=== PATIENT | male | born 1975 | race Caucasian/White ===

== ENCOUNTER 2016-10-30 11:17 | Inpatient (IN) | payer MEDICARE ==
[~2016-10-30 11:17] MED LIST: ACETAMINOPHEN500 M4 PO; ADULT ASPIRIN81 MG PO; AMLODIPINE BESY10 MG PO; AMOXICILLIN500 MG PO; ANDRODERM TD; APRESOLINE50 MG PO; ASPIRIN325 M3 PO; ASPIRIN325 MG PO; AUGMENTIN 500-1 EAC2 PO; AUGMENTIN 875-11 TAB PO; AUGMENTIN500 MG PO; AUGMENTIN875 MG PO; BABY ASPIRIN81 MG PO; BUMEX2 MG PO; BUTALBITAL-APA1 EAC1 PO; BYSTOLIC10 MG PO; BYSTOLIC20 M1 PO; BYSTOLIC20 MG PO; CALCITRIOL0.25 MCG PO; CALCITRIOL0.5 MCG PO; CALCIUM ACETAT667 M1 PO; CARDURA4 M1 PO; CARDURA4 MG PO; CEFAZOLIN SODIUM1 GM HEMO-CATH; CELLCEPT500 MG PO; CHLORASEPTIC LO1 LOZ MM; CHLORASEPTIC T180 ML MM; CLONAZEPAM1 M1 PO; DIPHENOXYLATE 2.1 EA PO; ENALAPRIL MALEA10 MG PO; EPOGEN10000 U/ML SC; EPOGEN20000 U/ML IJ; EPOGEN20000 U/ML SQ; EPOGEN4000 U/ML SC; EQL FISH OIL 1,1 CA1 PO; EQL FISH OIL 1,1 CAP PO; ERGOCALCIF50000 UNIT PO; FERAHEME510 MG/17 IV; FIORICET 50-301 EAC1 PO; FIORICET TABLET1 TAB PO; FISH OIL 1,0001 CA1 PO; FISH OIL 300 MG PO; GARAMYCIN3.5 GM OP; GENTAMICIN SULF30 GM TP; HEPARIN FL IV; HEPATITIS B VACCINE IM; HYDRALAZINE HC100 M1 PO; HYDRALAZINE HC100 MG PO; HYDRALAZINE HCL50 M1 PO; HYDRALAZINE HCL50 MG PO; IMDUR30 MG PO; IMDUR60 MG PO; ISOSORBIDE MONO60 M1 PO; ISOSORBIDE MONO60 M3 PO; KLONOPIN1 MG PO; LASIX20 MG PO; LEVAQUIN250 MG PO; LEVAQUIN500 MG PO; LEXAPRO10 MG PO; LIDOCAINE TOP; LIDOCAINE TP; LIDOCAINE-PRILO30 GM TP; LOMOTIL 2.5-0.1 EACH PO; LOMOTIL PO; LOMOTIL1 TA1 PO; LONITEN10 MG PO; MINOXIDIL10 M1 PO; MINOXIDIL10 MG PO; MIRALAX17 G2 PO; MIRALAX17 GM PO; MULTIPLE VITAMI1 TAB PO; NEPHROCAPS CAPSU1 MG PO; NEXIUM20 MG PO; NEXIUM40 M1 PO; NEXIUM40 MG PO; NORCO 5/3251 TA2 PO; NORCO 5/3251 TAB PO; NORVASC10 M1 PO; NORVASC10 M2 PO; NORVASC10 MG PO; NORVASC5 M2 PO; OS-CAL 500500 MG/TA1 PO; OXYCODONE HCL10 M2 PO; OXYCODONE/APAP PO; PERCOCET 10 MG/1 TA1 PO; PERCOCET 10-321 EACH PO; PERCOCET 10/31 UDTAB PO; PERCOCET 5-3251 EACH PO; PERCOCET 5/3251 TAB PO; PHOSLO667 M PO; PREDNISONE10 MG PO; PRILOSEC20 MG PO; PROGRAF1 MG PO; QUININE SULFAT324 MG PO; REGLAN5 MG PO; RENAGEL400 MG PO; RENAGEL800 MG PO; RENVELA800 MG PO; ROCALTROL0.5 MC1 PO; SALSALATE500 MG PO; SENSIPAR30 MG PO; SENSIPAR90 MG PO; SERTRALINE HCL100 M1 PO; SERTRALINE HCL100 M2 PO; SERTRALINE HCL100 M5 PO; SINEMET 25-1001 EAC1 PO; SINEMET 25-1001 TA1 PO; SINEMET ER 25/11 TA1 PO; SM PAIN RELIEV PO; SULFAMYLON SOL250 M1 TOP; TOPROL XL100 MG PO; TRICOR145 M1 PO; TRICOR145 M2 PO; TRICOR145 MG PO; TRICOR48 M2 PO; TRICOR48 MG PO; TUBERCULIN MC; TUMS500 M1 PO; VASOTEC10 M1 PO; VASOTEC10 M2 PO; VASOTEC10 MG PO; VASOTEC20 MG PO; VITAMIN D250000 UNI1 PO; ZOCOR40 MG PO; ZOFRAN4 M1 PO; ZOFRAN4 MG PO; ZOLOFT100 MG PO; ZOLOFT50 MG PO; [UNRECOGNIZED DRUG - CODE] PO; [UNRECOGNIZED DRUG - CODE] SC; [UNRECOGNIZED DRUG - OTHER] IP; [UNRECOGNIZED DRUG - OTHER] PO; [UNRECOGNIZED DRUG - OTHER] TOP; [UNRECOGNIZED DRUG - OTHER] TP
[2016-10-30] MEDS ORDERED: LYRICA75 MG/CAP PO (11:46)
[2016-10-30] MEDS ORDERED: OXYCODONE HCL10 M2 PO (11:46)
[2016-10-30] MEDS ORDERED: PERCOCET 10-321 EACH PO (11:46)
[2016-10-30] MEDS ORDERED: NORVASC10 M2 PO (11:47)
[2016-10-30] MEDS ORDERED: NEXIUM40 M1 PO (11:47)
[2016-10-30] MEDS ORDERED: HYDRALAZINE HC100 M1 PO (11:47)
[2016-10-30] MEDS ORDERED: BYSTOLIC20 M1 PO (11:47)
[2016-10-30] MEDS ORDERED: TRICOR145 M2 PO (11:48)
[2016-10-30] MEDS ORDERED: ZOLOFT100 M1 PO (11:48)
[2016-10-30] MEDS ORDERED: ISOSORBIDE MONO60 M3 PO (11:48)
[2016-10-30] MEDS ORDERED: ENALAPRIL MALEA10 M1 PO (11:49)
[2016-10-30] MEDS ORDERED: CARDURA4 M1 PO (11:49)
[2016-10-30] MEDS ORDERED: SINEMET 25-1001 EAC1 PO (11:49)
[2016-10-30] MEDS ORDERED: TRAZODONE HCL50 M1 PO (11:49)
[2016-10-30] MEDS ORDERED: MINOXIDIL10 M1 PO (11:50)
[2016-10-30 11:55] LABS: BASO % 0.3 % (0-2); EOS % 0.7 % (0-7); EOSINOPHIL ABSOLUTE COUNT 0.1 tho/cmm (0.0-0.7); HCT-HEMATOCRIT 27.9 % (36.0-53.5); HGB-HEMOGLOBIN 9.3 gm/dl (13.5-17.0); IMMATURE GRANULOCYTES ABSOLUTE 0.01 tho/cmm (0-0.03); IMMATURE GRANULOCYTES PERCENT 0.1 % (0-0.3); LYMPH % 11.7 % (20-45); LYMPH ABSOLUTE COUNT 0.8 tho/cmm (0.8-4.5); MCH (MEAN CORPUSCULAR HGB) 29.4 pg (28.0-32.0); MCHC MEAN CORPUSCULAR HGB CONC 33.3 % (32.0-36.0); MCV (MEAN CELL VOLUME) 88.3 fl (82.0-96.0); MEAN PLATELET VOLUME 8.8 cmc (9.4-12.4); MONO % 11.4 % (0-12); MONOCYTE ABSOLUTE COUNT 0.8 tho/cmm (0.0-1.2); NEUTROPHIL ABSOLUTE COUNT 5.1 tho/cmm (1.6-8.0); NEUTROPHIL-AUTOMATED 5.1 tho/cmm (1.6-8.0); NEUTROPHILS % 75.8 % (40-80); PLATELET COUNT 141 tho/cmm (150-450); RED BLOOD COUNT 3.16 mil/cmm (4.40-5.70); RED CELL DISTRIBUTION WIDTH 15.9 % (12.4-16.4); WHITE BLOOD COUNT 6.7 tho/cmm (4.0-10.0)
[2016-10-30 12:01] LABS: INR 1.2 INR (0.9-1.1); PROTHROMBIN TIME 14.4 SECONDS (9.0-13.6)
[2016-10-30 12:14] LABS: ALB/GLOB RATIO 0.5 (0.8-2.0); ALBUMIN 2.9 g/dl (3.5-5.0); ALKALINE PHOSPHATASE 74 U/L (33-138); ALT/SGPT <10 U/L (12-78); ANION GAP 13 mmol/L (0-20); AST/SGOT 14 U/L (10-40); BILIRUBIN,TOTAL 0.9 mg/dl (0.0-1.5); BLOOD UREA NITROGEN 32 mg/dl (6-24); CALCIUM 8.4 mg/dl (8.5-10.5); CARBON DIOXIDE-VENOUS 30 mmol/L (22-32); CHLORIDE 94 mmol/l (96-110); CREATININE 5.59 mg/dl (0.60-1.30); GLUCOSE 105 mg/dL (70-110); LIPASE 76 U/L (73-393); POTASSIUM 3.6 mmol/L (3.7-5.1); SODIUM 133 mmol/L (135-145); eGFR VALUE FOR BLACK 14 mL/Min
[2016-10-31 05:08] LABS: BASO % 0.6 % (0-2); EOSINOPHIL ABSOLUTE COUNT 0.1 tho/cmm (0.0-0.7); HGB-HEMOGLOBIN 7.8 gm/dl (13.5-17.0); IMMATURE GRANULOCYTES ABSOLUTE 0.01 tho/cmm (0-0.03); IMMATURE GRANULOCYTES PERCENT 0.2 % (0-0.3); LYMPH % 18.2 % (20-45); LYMPH ABSOLUTE COUNT 0.9 tho/cmm (0.8-4.5); MCHC MEAN CORPUSCULAR HGB CONC 32.5 % (32.0-36.0); MCV (MEAN CELL VOLUME) 89.2 fl (82.0-96.0); MEAN PLATELET VOLUME 9.1 cmc (9.4-12.4); MONOCYTE ABSOLUTE COUNT 0.8 tho/cmm (0.0-1.2); NEUTROPHIL ABSOLUTE COUNT 3.3 tho/cmm (1.6-8.0); NEUTROPHIL-AUTOMATED 3.3 tho/cmm (1.6-8.0); PLATELET COUNT 135 tho/cmm (150-450); RED BLOOD COUNT 2.69 mil/cmm (4.40-5.70); RED CELL DISTRIBUTION WIDTH 16.3 % (12.4-16.4)
[2016-10-31 05:14] LABS: ANION GAP 17 mmol/L (0-20); BLOOD UREA NITROGEN 44 mg/dl (6-24); CALCIUM 7.3 mg/dl (8.5-10.5); CARBON DIOXIDE-VENOUS 28 mmol/L (22-32); CHLORIDE 92 mmol/l (96-110); GLUCOSE 136 mg/dL (70-110); POTASSIUM 3.7 mmol/L (3.7-5.1); SODIUM 133 mmol/L (135-145); eGFR VALUE FOR BLACK 10 mL/Min
[2016-10-31 05:27] LABS: CREATININE 7.02 mg/dl (0.60-1.30)
[2016-11-02 05:38] LABS: BASO % 0.8 % (0-2); EOS % 4.4 % (0-7); EOSINOPHIL ABSOLUTE COUNT 0.2 tho/cmm (0.0-0.7); HCT-HEMATOCRIT 25.5 % (36.0-53.5); HGB-HEMOGLOBIN 8.2 gm/dl (13.5-17.0); IMMATURE GRANULOCYTES ABSOLUTE 0.03 tho/cmm (0-0.03); IMMATURE GRANULOCYTES PERCENT 0.6 % (0-0.3); LYMPH ABSOLUTE COUNT 1.3 tho/cmm (0.8-4.5); MCH (MEAN CORPUSCULAR HGB) 28.6 pg (28.0-32.0); MCHC MEAN CORPUSCULAR HGB CONC 32.2 % (32.0-36.0); MCV (MEAN CELL VOLUME) 88.9 fl (82.0-96.0); MEAN PLATELET VOLUME 8.9 cmc (9.4-12.4); MONO % 15.5 % (0-12); MONOCYTE ABSOLUTE COUNT 0.7 tho/cmm (0.0-1.2); NEUTROPHIL ABSOLUTE COUNT 2.5 tho/cmm (1.6-8.0); NEUTROPHIL-AUTOMATED 2.5 tho/cmm (1.6-8.0); NEUTROPHILS % 51.7 % (40-80); PLATELET COUNT 144 tho/cmm (150-450); RED BLOOD COUNT 2.87 mil/cmm (4.40-5.70); RED CELL DISTRIBUTION WIDTH 16.2 % (12.4-16.4); WHITE BLOOD COUNT 4.8 tho/cmm (4.0-10.0)
[2016-11-02 05:46] LABS: ALBUMIN 2.5 g/dl (3.5-5.0); ANION GAP 12 mmol/L (0-20); BLOOD UREA NITROGEN 30 mg/dl (6-24); CALCIUM 7.3 mg/dl (8.5-10.5); CARBON DIOXIDE-VENOUS 27 mmol/L (22-32); CHLORIDE 101 mmol/l (96-110); CREATININE 4.73 mg/dl (0.60-1.30); GLUCOSE 100 mg/dL (70-110); PHOSPHOROUS 3.3 mg/dl (2.5-4.9); POTASSIUM 4.1 mmol/L (3.7-5.1); SODIUM 136 mmol/L (135-145); eGFR VALUE FOR BLACK 17 mL/Min
--- NOTE | 2016-11-02 09:17 | NUR ---
11/02/16 AT 0910 INFORMED GUILLAUME IN DIALYSIS THAT PT IS SCHEDULED FOR A VATS PROCEDURE AT AROUND 1040 TODAY.
[2016-11-03 04:59] LABS: BASO % 0.2 % (0-2); EOSINOPHIL ABSOLUTE COUNT 0.1 tho/cmm (0.0-0.7); HCT-HEMATOCRIT 25.3 % (36.0-53.5); HGB-HEMOGLOBIN 8.2 gm/dl (13.5-17.0); IMMATURE GRANULOCYTES ABSOLUTE 0.05 tho/cmm (0-0.03); IMMATURE GRANULOCYTES PERCENT 0.6 % (0-0.3); LYMPH % 19.3 % (20-45); LYMPH ABSOLUTE COUNT 1.6 tho/cmm (0.8-4.5); MCH (MEAN CORPUSCULAR HGB) 28.9 pg (28.0-32.0); MCHC MEAN CORPUSCULAR HGB CONC 32.4 % (32.0-36.0); MCV (MEAN CELL VOLUME) 89.1 fl (82.0-96.0); MONO % 12.9 % (0-12); MONOCYTE ABSOLUTE COUNT 1.1 tho/cmm (0.0-1.2); NEUTROPHIL ABSOLUTE COUNT 5.4 tho/cmm (1.6-8.0); NEUTROPHIL-AUTOMATED 5.4 tho/cmm (1.6-8.0); PLATELET COUNT 155 tho/cmm (150-450); RED BLOOD COUNT 2.84 mil/cmm (4.40-5.70); RED CELL DISTRIBUTION WIDTH 16.3 % (12.4-16.4)
[2016-11-03 05:10] LABS: ANION GAP 16 mmol/L (0-20); BLOOD UREA NITROGEN 44 mg/dl (6-24); CALCIUM 7.4 mg/dl (8.5-10.5); CARBON DIOXIDE-VENOUS 24 mmol/L (22-32); CHLORIDE 99 mmol/l (96-110); GLUCOSE 112 mg/dL (70-110); MAGNESIUM 1.7 mg/dl (1.8-2.6); PHOSPHOROUS 3.7 mg/dl (2.5-4.9); POTASSIUM 4.8 mmol/L (3.7-5.1); SODIUM 134 mmol/L (135-145); WHITE BLOOD COUNT 8.2 tho/cmm (4.0-10.0); eGFR VALUE FOR BLACK 11 mL/Min
[2016-11-03 05:23] LABS: CREATININE 6.86 mg/dl (0.60-1.30)
[2016-11-04 05:28] LABS: ANION GAP 17 mmol/L (0-20); BLOOD UREA NITROGEN 30 mg/dl (6-24); CALCIUM 7.5 mg/dl (8.5-10.5); CARBON DIOXIDE-VENOUS 24 mmol/L (22-32); CHLORIDE 100 mmol/l (96-110); GLUCOSE 97 mg/dL (70-110); PHOSPHOROUS 4.1 mg/dl (2.5-4.9); POTASSIUM 4.5 mmol/L (3.7-5.1); SODIUM 136 mmol/L (135-145); eGFR VALUE FOR BLACK 16 mL/Min
[2016-11-04 05:29] LABS: HGB-HEMOGLOBIN 8.1 gm/dl (13.5-17.0); MCV (MEAN CELL VOLUME) 88.3 fl (82.0-96.0); RED CELL DISTRIBUTION WIDTH 16.2 % (12.4-16.4)
[2016-11-04 05:33] LABS: CREATININE 4.89 mg/dl (0.60-1.30)
[2016-11-06 05:49] LABS: BASO % 1.1 % (0-2); BASO ABSOLUTE COUNT 0.1 tho/cmm (0.0-0.2); EOS % 5.1 % (0-7); EOSINOPHIL ABSOLUTE COUNT 0.2 tho/cmm (0.0-0.7); HCT-HEMATOCRIT 24.9 % (36.0-53.5); HGB-HEMOGLOBIN 8.1 gm/dl (13.5-17.0); IMMATURE GRANULOCYTES ABSOLUTE 0.08 tho/cmm (0-0.03); IMMATURE GRANULOCYTES PERCENT 1.7 % (0-0.3); LYMPH % 28.7 % (20-45); LYMPH ABSOLUTE COUNT 1.4 tho/cmm (0.8-4.5); MCH (MEAN CORPUSCULAR HGB) 28.8 pg (28.0-32.0); MCHC MEAN CORPUSCULAR HGB CONC 32.5 % (32.0-36.0); MCV (MEAN CELL VOLUME) 88.6 fl (82.0-96.0); MONO % 12.9 % (0-12); MONOCYTE ABSOLUTE COUNT 0.6 tho/cmm (0.0-1.2); NEUTROPHIL ABSOLUTE COUNT 2.4 tho/cmm (1.6-8.0); NEUTROPHIL-AUTOMATED 2.4 tho/cmm (1.6-8.0); NEUTROPHILS % 50.5 % (40-80); PLATELET COUNT 179 tho/cmm (150-450); RED BLOOD COUNT 2.81 mil/cmm (4.40-5.70); RED CELL DISTRIBUTION WIDTH 15.9 % (12.4-16.4); WHITE BLOOD COUNT 4.7 tho/cmm (4.0-10.0)
[2016-11-06 06:22] LABS: CALCIUM 7.9 mg/dl (8.5-10.5); CHLORIDE 101 mmol/l (96-110); SODIUM 136 mmol/L (135-145)
[2016-11-06 06:26] LABS: ALBUMIN 2.4 g/dl (3.5-5.0); ANION GAP 14 mmol/L (0-20); BLOOD UREA NITROGEN 27 mg/dl (6-24); CARBON DIOXIDE-VENOUS 26 mmol/L (22-32); CREATININE 4.04 mg/dl (0.60-1.30); GLUCOSE 83 mg/dL (70-110); PHOSPHOROUS 4.1 mg/dl (2.5-4.9); eGFR VALUE FOR BLACK 20 mL/Min
[2016-11-06] MEDS ORDERED: AMOXICILLIN500 M1 PO (14:15)
[2016-11-06] MEDS ORDERED: ROXICODONE5 M2 PO (14:18)
[2016-11-06] MEDS ORDERED: SENNA S TABLET1 EACH PO (14:22)
== END 2016-11-06 16:17 | DRG 163 ==
LOC: EDMED 11:17 → EMR2 14:24 → 5WE 15:15 → ORW 11-02 10:57 → PACU 11-02 12:57 → PCUB 11-02 14:41
PROVIDERS: Emergency Medicine; Internal Medicine Nephrology; Nurse Practitioner Acute Care; ADMIT Internal Medicine
PROC: 5A1D60Z (ICD-10-PCS; 2016-10-31)
PROC: 0W9D40Z Drainage of Pericardial Cavity with Drainage Device, Percutaneous Endoscopic Approach (ICD-10-PCS; principal; 2016-11-02)
PROC: 0BDN4ZZ Extraction of Right Pleura, Percutaneous Endoscopic Approach (ICD-10-PCS; 2016-11-02)
PROC: 0BJ08ZZ Inspection of Tracheobronchial Tree, Via Natural or Artificial Opening Endoscopic (ICD-10-PCS; 2016-11-02)
DX: J18.9 Pneumonia, unspecified organism (principal); N18.6 End stage renal disease; T86.12 Kidney transplant failure; I12.0 Hypertensive chronic kidney disease with stage 5 chronic kidney disease or end stage renal disease; E22.2 Syndrome of inappropriate secretion of antidiuretic hormone; I31.3 Pericardial effusion (noninflammatory); J91.8 Pleural effusion in other conditions classified elsewhere; N25.81 Secondary hyperparathyroidism of renal origin; Y95 Nosocomial condition; I50.9 Heart failure, unspecified; Z99.2 Dependence on renal dialysis; G25.81 Restless legs syndrome; G89.29 Other chronic pain; D63.1 Anemia in chronic kidney disease; I27.2 Other secondary pulmonary hypertension; I25.10 Atherosclerotic heart disease of native coronary artery without angina pectoris; E78.5 Hyperlipidemia, unspecified; G62.9 Polyneuropathy, unspecified
CPT/HCPCS: C1729; J0885; J1170; J1650; J2250; J2270; J2543; J2997; J3010; J3370; J3475; J7040; J7050; J7999; Q9967